=== PATIENT | female | born 1955 | race Two or more races ===

== ENCOUNTER 2023-05-05 19:21 | Inpatient (IN) | payer MEDICARE, OTHER ==
[~2023-05-05] VITALS: Ht 167.6 cm; Wt 46.3 kg
[2023-05-05 20:07] LABS: BASOPHILS # (AUTO) 0.1 K/uL (0.0-0.2); BASOPHILS % (AUTO) 0.8 % (0.0-2.0); EOSINOPHILS # (AUTO) 0.2 K/uL (0.0-0.7); EOSINOPHILS % (AUTO) 2.4 % (0.0-6.0); HEMATOCRIT 30 % (33-45); HEMOGLOBIN 10.1 g/dL (11.5-14.8); LYMPHOCYTES % (AUTO) 15.9 % (20.0-44.0); MEAN CORPUSCULAR HEMOGLOBIN 33 PG (26.0-33.0); MEAN CORPUSCULAR HGB CONC 33 g/dl (31.0-36.0); MEAN CORPUSCULAR VOLUME 99 fL (82-100); MONOCYTES # (AUTO) 0.5 K/uL (0.1-1.30); MONOCYTES % (AUTO) 7.8 % (2.0-12.0); NEUTROPHILS # (AUTO) 4.8 K/uL (1.8-8.9); NEUTROPHILS % (AUTO) 73.1 % (43.0-81.0); PLATELET COUNT (AUTO) 142 K/uL (150-450); RED BLOOD CELL COUNT(AUTO) 3.05 MIL/uL (4.0-5.2); RED CELL DISTRIBUTION WIDTH 14.7 % (11.5-15.0); WHITE BLOOD COUNT (AUTO) 6.6 K/uL (4.3-11.0)
[2023-05-05] MEDS: NTG 50 MG/D5W250 ML BOTTL 250 ML IV PRN ×4 (20:28→21:33)
[2023-05-05 20:32] LABS: CALCIUM, SERUM 8.8 mg/dL (8.5-10.1); CARBON DIOXIDE 28 mmol/L (21-32); CHLORIDE 96 mmol/L (98-107); CREATININE 3.8 mg/dL (0.6-1.3); GLUCOSE 196 mg/dL (74-106); POTASSIUM 4.1 mmol/L (3.5-5.1); SODIUM SERUM 134 mmol/L (136-145); UREA NITROGEN, BLOOD 37 mg/dL (7-18)
[2023-05-05 20:42] LABS: NT-PRO BNP 18286 pg/mL (0-125)
[2023-05-06] VITALS (40 sets, daily range): BP systolic 100–202; BP diastolic 41–88; TEMP 97.6–98.6; O2SAT 96–100
[2023-05-06] MEDS ORDERED: Z GUARD REMEDY 4 OZ OINT TP PRN
[2023-05-06] MEDS ORDERED: ONDANSETRON HCL/PF 4 MG/2 ML VIAL IVP PRN
[2023-05-06] MEDS ORDERED: MORPHINE SULFATE INJ 2 MG/ML DISP.SYRIN IV PRN
[2023-05-06] MEDS ORDERED: ACETAMINOPHEN 325 MG TABLET PO PRN
[2023-05-06] MEDS ORDERED: DEXTROSE 50%-WATER 50 ML DISP.SYRIN IV PRN
[2023-05-06] MEDS ORDERED: NTG 50 MG/D5W250 ML BOTTL 50 MG/250 ML BTL IV PRN (01:30)
[2023-05-06 01:47] LABS: INR 1.12 (0.91-1.10); PARTIAL THROMBOPLASTIN TIME 27.3 SEC (24.3-34.3); PROTHROMBIN TIME 11.7 SECS (9.2-11.1)
[2023-05-06] MEDS ORDERED: NTG 50 MG/D5W250 ML BOTTL 250 ML IV PRN (02:00)
[2023-05-06] MEDS ORDERED: HEPARIN SODIUM, PORCINE 1,000 UNIT/ML VIAL IV ONE (02:40)
[2023-05-06] MEDS ORDERED: HEPARIN SODIUM, PORCINE 5000 UNITS/1 ML VIAL ONE (03:00)
[2023-05-06] MEDS: HEPARIN INFUSION/D5W 500 ML IV PRN ×2 (03:07→16:33)
[2023-05-06 05:25] LABS: BASOPHILS # (AUTO) 0.1 K/uL (0.0-0.2); BASOPHILS % (AUTO) 1.1 % (0.0-2.0); EOSINOPHILS # (AUTO) 0.2 K/uL (0.0-0.7); EOSINOPHILS % (AUTO) 3.4 % (0.0-6.0); HEMATOCRIT 30 % (33-45); HEMOGLOBIN 10.3 g/dL (11.5-14.8); LYMPHOCYTES # (AUTO) 2.2 K/uL (0.8-4.8); MEAN CORPUSCULAR HEMOGLOBIN 33 PG (26.0-33.0); MEAN CORPUSCULAR HGB CONC 34 g/dl (31.0-36.0); MEAN CORPUSCULAR VOLUME 98 fL (82-100); MONOCYTES # (AUTO) 0.5 K/uL (0.1-1.30); MONOCYTES % (AUTO) 7.9 % (2.0-12.0); NEUTROPHILS # (AUTO) 3.2 K/uL (1.8-8.9); NEUTROPHILS % (AUTO) 51.6 % (43.0-81.0); PLATELET COUNT (AUTO) 146 K/uL (150-450); RED BLOOD CELL COUNT(AUTO) 3.09 MIL/uL (4.0-5.2); RED CELL DISTRIBUTION WIDTH 14.7 % (11.5-15.0); WHITE BLOOD COUNT (AUTO) 6.2 K/uL (4.3-11.0)
[2023-05-06 05:45] LABS: CREATININE 4.5 mg/dL (0.6-1.3); MAGNESIUM 2.1 mg/dL (1.8-2.4); PHOSPHORUS 4.9 mg/dL (2.5-4.9); POTASSIUM 3.9 mmol/L (3.5-5.1)
[2023-05-06 05:52] LABS: THYROID STIMULATING HORMONE 2.352 uIU/mL (0.358-3.74)
[2023-05-06] MEDS: BLOOD SUGAR DIAGNOSTIC 1 EACH STRIP IN SCH ×4 (07:02→21:48)
[2023-05-06] MEDS ORDERED: PANTOPRAZOLE 40 MG TABLET.DR PO SCH (07:30)
[2023-05-06] MEDS ORDERED: ASPI-1420 PO (08:15)
[2023-05-06] MEDS ORDERED: PANT40TA2 PO (08:15)
[2023-05-06] MEDS ORDERED: CARV25TA PO (08:15)
[2023-05-06] MEDS ORDERED: CITR15SO PO (08:15)
[2023-05-06] MEDS ORDERED: ATOR80TA PO (08:15)
[2023-05-06] MEDS ORDERED: BRIM5DRO RIGHTEYE (08:15)
[2023-05-06] MEDS ORDERED: EZET10TA32 PO (08:15)
[2023-05-06] MEDS ORDERED: DORZ10DR11 RIGHTEYE (08:15)
[2023-05-06] MEDS ORDERED: ACET-868 PO (08:15)
[2023-05-06] MEDS ORDERED: SENN-261 PO (08:15)
[2023-05-06] MEDS ORDERED: DEXT15DR23 EACHEYE (08:15)
[2023-05-06] MEDS ORDERED: LATA7.5D RIGHTEYE (08:15)
[2023-05-06] MEDS ORDERED: POLY17PO4 PO (08:15)
[2023-05-06] MEDS ORDERED: MULT-754 PO (08:15)
[2023-05-06] MEDS ORDERED: NIFE90TA2 PO (08:15)
[2023-05-06] MEDS ORDERED: HYDR-4077 PO (08:15)
[2023-05-06] MEDS ORDERED: CHOL200059 PO (08:15)
[2023-05-06] MEDS: ASPIRIN 81 MG TAB.CHEW PO SCH (08:31)
[2023-05-06] MEDS: NIFEdipine XL (30MG) 30 MG TAB PO SCH ×2 (08:49→16:41)
[2023-05-06] MEDS: EZETIMIBE 10 MG TABLET PO SCH (08:50)
[2023-05-06] MEDS: PANTOPRAZOLE 40 MG TABLET.DR PO SCH ×2 (08:51→16:41)
[2023-05-06] MEDS: CARVEDILOL 12.5 MG TABLET PO SCH ×2 (09:00→16:42)
[2023-05-06] MEDS ORDERED: ASPIRIN EC 81 MG TABLET.DR PO SCH (09:00)
[2023-05-06] MEDS ORDERED: METOPROLOL TARTRATE 25 MG TABLET PO SCH (09:00)
[2023-05-06] MEDS ORDERED: HEPARIN SODIUM, PORCINE 5000 UNITS/1 ML VIAL SQ SCH (09:00)
[2023-05-06] MEDS ORDERED: hydrALAZINE HCL 50 MG TABLET PO SCH (09:00)
[2023-05-06] MEDS ORDERED: SENNOSIDES 8.6 MG TABLET PO PRN (09:00)
[2023-05-06] MEDS ORDERED: POLYETHYLENE GLYCOL 3350 17 GM POWD.PACK PO PRN (09:00)
[2023-05-06] MEDS: ATORVASTATIN 40 MG TABLET PO SCH (09:24)
[2023-05-06] MEDS: CITRIC ACID/SODIUM CITRATE (BICITRA)15 ML UDC PO SCH (09:24)
[2023-05-06] MEDS ORDERED: POLYVINYL ALCOHOL 15 ML BOTTLE EACHEYE PRN (09:30)
[2023-05-06] MEDS: hydrALAZINE HCL IV 20 MG VIAL IV PRN ×2 (10:13→21:40)
[2023-05-06] MEDS: TIMOLOL MAL/DORZOLAM HCL OPHTH 10 ML BOTTLE RIGHTEYE SCH ×2 (10:15→16:35)
[2023-05-06] MEDS ORDERED: NEPRO VAN 237 ML CAN PO PRN (10:30)
[2023-05-06] MEDS: hydrALAZINE HCL 50 MG TABLET PO SCH ×3 (11:18→16:41)
[2023-05-06] MEDS: INSULIN REGULAR, HUMAN 100 UNIT/ML 3 ML VIAL SQ PRN ×3 (11:50→21:52)
[2023-05-06] MEDS: CLONIDINE HCL 0.1 MG TABLET PO PRN (12:02)
[2023-05-06] MEDS: METOPROLOL TARTRATE INJ 5 MG/5 ML AMPUL IVP PRN ×2 (12:28→12:40)
[2023-05-06] MEDS ORDERED: NITROGLYCERIN 0.4 MG/TAB BOTTLE ONE (12:30)
[2023-05-06] MEDS ORDERED: METOPROLOL TARTRATE INJ 5 MG/5 ML AMPUL ONE (12:30)
[2023-05-06] MEDS ORDERED: NITROGLYCERIN 0.4 MG/TAB BOTTLE SL ONE (12:30)
[2023-05-06] MEDS ORDERED: CT SWABBABLE VALVE TRANS SET 1 EA INFUS.SET MC ONE (12:32)
[2023-05-06] MEDS ORDERED: IOHEXOL-350 100 ML VIAL IV ONE (12:32)
[2023-05-06] MEDS ORDERED: LABETALOL HCL (100MG) 100 MG TABLET PO SCH (13:00)
[2023-05-06] MEDS: BRIMONIDINE TARTRATE OPHT SOLN 5 ML BOTTLE RIGHTEYE SCH ×2 (13:11→16:35)
[2023-05-06] MEDS: LATANOPROST EYE DROP 0.005% 2.5 ML BOTTLE OP SCH (21:51)
[2023-05-06] MEDS ORDERED: ATORVASTATIN 40 MG TABLET PO SCH (22:00)
[2023-05-07] VITALS (29 sets, daily range): BP systolic 122–178; BP diastolic 44–66; TEMP 97.6–99.3; O2SAT 96–99
[2023-05-07] MEDS: BLOOD SUGAR DIAGNOSTIC 1 EACH STRIP IN SCH ×4 (07:23→22:34)
[2023-05-07 07:37] LABS: BASOPHILS # (AUTO) 0.1 K/uL (0.0-0.2); BASOPHILS % (AUTO) 0.8 % (0.0-2.0); EOSINOPHILS # (AUTO) 0.2 K/uL (0.0-0.7); EOSINOPHILS % (AUTO) 2.7 % (0.0-6.0); HEMATOCRIT 31 % (33-45); HEMOGLOBIN 10.3 g/dL (11.5-14.8); LYMPHOCYTES # (AUTO) 1.9 K/uL (0.8-4.8); LYMPHOCYTES % (AUTO) 22.5 % (20.0-44.0); MEAN CORPUSCULAR HEMOGLOBIN 33 PG (26.0-33.0); MEAN CORPUSCULAR HGB CONC 34 g/dl (31.0-36.0); MEAN CORPUSCULAR VOLUME 99 fL (82-100); MONOCYTES # (AUTO) 0.6 K/uL (0.1-1.30); MONOCYTES % (AUTO) 7.1 % (2.0-12.0); NEUTROPHILS # (AUTO) 5.7 K/uL (1.8-8.9); NEUTROPHILS % (AUTO) 66.9 % (43.0-81.0); PLATELET COUNT (AUTO) 146 K/uL (150-450); RED CELL DISTRIBUTION WIDTH 14.6 % (11.5-15.0); WHITE BLOOD COUNT (AUTO) 8.5 K/uL (4.3-11.0)
[2023-05-07 08:01] LABS: ALBUMIN 2.8 g/dL (3.4-5.0); BILIRUBIN,TOTAL 0.2 mg/dL (0.2-1.0); CALCIUM, SERUM 8.5 mg/dL (8.5-10.1); CREATININE 4.5 mg/dL (0.6-1.3); MAGNESIUM 2.1 mg/dL (1.8-2.4); PHOSPHORUS 4.7 mg/dL (2.5-4.9); POTASSIUM 3.8 mmol/L (3.5-5.1); TOTAL PROTEIN, SERUM 6.5 g/dL (6.4-8.2)
[2023-05-07] MEDS: ASPIRIN 81 MG TAB.CHEW PO SCH (08:08)
[2023-05-07] MEDS: PANTOPRAZOLE 40 MG TABLET.DR PO SCH ×2 (08:08→17:23)
[2023-05-07] MEDS: EZETIMIBE 10 MG TABLET PO SCH (08:08)
[2023-05-07] MEDS: ATORVASTATIN 40 MG TABLET PO SCH (08:08)
[2023-05-07] MEDS: CITRIC ACID/SODIUM CITRATE (BICITRA)15 ML UDC PO SCH (08:08)
[2023-05-07] MEDS: hydrALAZINE HCL 50 MG TABLET PO SCH ×3 (08:09→17:23)
[2023-05-07] MEDS: NIFEdipine XL (30MG) 30 MG TAB PO SCH ×2 (08:09→17:23)
[2023-05-07] MEDS: TIMOLOL MAL/DORZOLAM HCL OPHTH 10 ML BOTTLE RIGHTEYE SCH ×2 (08:10→17:24)
[2023-05-07] MEDS: CARVEDILOL 12.5 MG TABLET PO SCH ×2 (08:11→17:24)
[2023-05-07] MEDS: BRIMONIDINE TARTRATE OPHT SOLN 5 ML BOTTLE RIGHTEYE SCH ×3 (08:11→17:24)
[2023-05-07] MEDS: ISOSORBIDE DINITRATE (20MG) 20 MG TABLET PO SCH ×2 (08:23→17:25)
[2023-05-07] MEDS ORDERED: HYDR-4077 PO (10:45)
[2023-05-07 13:07] LABS: HEPATITIS B SURFACE AB Reactive (.)
[2023-05-07] MEDS: INSULIN REGULAR, HUMAN 100 UNIT/ML 3 ML VIAL SQ PRN ×2 (13:22→22:43)
[2023-05-07] MEDS: CLONIDINE HCL 0.1 MG TABLET PO PRN (20:17)
[2023-05-07] MEDS: hydrALAZINE HCL IV 20 MG VIAL IV PRN (20:54)
[2023-05-07] MEDS: LATANOPROST EYE DROP 0.005% 2.5 ML BOTTLE OP SCH (22:34)
[2023-05-08] VITALS: BP 153/47; TEMP 98.6; O2SAT 97
[2023-05-08 04:34] VITALS: BP 131/47; TEMP 99; O2SAT 98
[2023-05-08] MEDS: INSULIN REGULAR, HUMAN 100 UNIT/ML 3 ML VIAL SQ PRN ×2 (06:34→11:57)
[2023-05-08] MEDS: BLOOD SUGAR DIAGNOSTIC 1 EACH STRIP IN SCH ×2 (06:34→11:55)
[2023-05-08 08:00] VITALS: BP 144/45; TEMP 97.7; O2SAT 98
[2023-05-08] MEDS: CITRIC ACID/SODIUM CITRATE (BICITRA)15 ML UDC PO SCH (09:22)
[2023-05-08] MEDS: CARVEDILOL 12.5 MG TABLET PO SCH (09:23)
[2023-05-08] MEDS: ATORVASTATIN 40 MG TABLET PO SCH (09:23)
[2023-05-08] MEDS: EZETIMIBE 10 MG TABLET PO SCH (09:24)
[2023-05-08] MEDS: NIFEdipine XL (30MG) 30 MG TAB PO SCH (09:24)
[2023-05-08] MEDS: hydrALAZINE HCL 50 MG TABLET PO SCH ×2 (09:25→13:09)
[2023-05-08] MEDS: PANTOPRAZOLE 40 MG TABLET.DR PO SCH (09:25)
[2023-05-08] MEDS: ASPIRIN 81 MG TAB.CHEW PO SCH (09:25)
[2023-05-08] MEDS: ISOSORBIDE DINITRATE (20MG) 20 MG TABLET PO SCH (09:25)
[2023-05-08] MEDS: BRIMONIDINE TARTRATE OPHT SOLN 5 ML BOTTLE RIGHTEYE SCH ×2 (09:26→13:08)
[2023-05-08] MEDS: TIMOLOL MAL/DORZOLAM HCL OPHTH 10 ML BOTTLE RIGHTEYE SCH (09:26)
[2023-05-08 13:09] VITALS: BP 140/74
== END 2023-05-08 16:04 | disposition home health service (06) | DRG 280 ==
LOC: ER 19:36 → ICU 22:08 → TELE 05-07 21:59 → MED 05-08 09:47
PROVIDERS: ADMIT Nurse Practitioner Family; ATTEND Internal Medicine
PROC: 5A1D70Z Performance of Urinary Filtration, Intermittent, Less than 6 Hours Per Day (ICD-10-PCS; principal; 2023-05-06)
DX: I16.1 Hypertensive emergency (principal); I21.A1 Myocardial infarction type 2; N18.6 End stage renal disease; I20.9 Angina pectoris, unspecified; I12.0 Hypertensive chronic kidney disease with stage 5 chronic kidney disease or end stage renal disease; E11.22 Type 2 diabetes mellitus with diabetic chronic kidney disease; D63.8 Anemia in other chronic diseases classified elsewhere; E83.9 Disorder of mineral metabolism, unspecified; Z99.2 Dependence on renal dialysis; H54.3 Unqualified visual loss, both eyes
CPT/HCPCS: 36415; 71045-TC; 75574; 80048-TC; 80053-TC; 80061-TC; 82962-TC; 83735-TC; 83880; 84100-TC; 84443-TC; 84484-TC; 85025-TC; 85610-TC; 85730-TC; 86706; 87081-TC; 87340; 90935-TC; 93307-TC; 97112-TC; 97116-TC; 97530-TC; A4223; G0378; J0360; J1644; J1815; J3490; J7030; Q9967